=== PATIENT | female | born 1995 | race Caucasian/White ===

== ENCOUNTER 2017-02-21 11:34 | Emergency (ER) | payer OTHER ==
[~2017-02-21] VITALS: Ht 165.1 cm; Wt 64.2 kg
[~2017-02-21 11:34] MED LIST: AMPH20TA2 PO; LEVOTAB2 PO
[2017-02-21 11:38] VITALS: TEMP 36.8; Ht 165.1 cm; Wt 64.2 kg
[2017-02-21] MEDS ORDERED: KETOROLAC TROMETHAMINE 30 MG/ML VIAL IV STA (12:19)
[2017-02-21] MEDS ORDERED: SODIUM CHLORIDE 0.9% 1000ML 1,000 ML IV STA (12:23)
[2017-02-21] MEDS ORDERED: BCPILLS PO (12:45)
[2017-02-21] MEDS ORDERED: DEXT1CAP8 PO (12:49)
[2017-02-21 13:27] LABS: BASO % 0.2 %; BASO ABS # 0.03 K/uL (0-0.2); COMPLETE YES; EOS % 0.4 %; HEMATOCRIT 38.6 % (37-47); IG% 0.4 %; LYMPH % 12.8 %; LYMPH ABS # 1.71 K/uL (1.2-3.4); MEAN CELL VOLUME 90.8 fL (80-100); MEAN CORPUSCULAR HEMOGLOBIN 30.4 pg (25-34); MEAN CORPUSCULAR HGB CONC 33.4 g/dl (32-36); MEAN PLATELET VOLUME 10.5 fL (7.4-10.4); MONO % 15.5 %; NEUT % 70.7 %; PLATELET COUNT 244 K/uL (130-400); RED BLOOD COUNT 4.25 M/uL (4.2-5.4); WHITE BLOOD COUNT 13.35 K/uL (4.8-10.8)
[2017-02-21 13:37] LABS: CALCIUM 9.3 mg/dl (8.5-10.1)
[2017-02-21 13:39] LABS: BUN/CREATININE RATIO 6.3 (10-20); CREATININE 0.88 mg/dl (0.60-1.20); POTASSIUM 3.8 mmol/L (3.5-5.1)
[2017-02-21 14:32] VITALS: BP 97/82; PULSE 93; O2SAT 99
--- NOTE | 2017-02-21 15:31 | EMERGENCY ROOM VISIT NOTE ---
History Report prepared by Jose: Megan Galindo Under the Supervision of: Dr. Maryan Sierra D.O. First contact with patient: 11:58 Chief Complaint: ILLNESS Stated Complaint: ON AND OFF FEVER, SHIVERS, NIGHT SWEATS, HEADACHE History of Present Illness The patient is a 22 year old female who presents to the Emergency Room with complaints of persistent illness starting 3 days ago. She was sent to the ED by her sister over concerns of the flu. She reports body aches, headache, fever, chills, and night sweats. Her head and neck feel stiff and she has pain in the back of her head. She has some abdominal pain. She has been keeping hydrated. She is currently on her period. She has received her flu shot. She denies any other medical problems. Source of History: patient Onset: 3 days ago Position: other (global) Quality: other (illness) Timing: other (persistent) Associated Symptoms: + abdominal pain, + chills, + fevers, + headache Note: Pt reports night sweats, body aches, neck stiffness. Review of Systems See HPI for pertinent positives & negatives. A total of 10 systems reviewed and were otherwise negative. Past Medical & Surgical No reported past medical history Family History Diabetes mellitus Hypertension Social History Smoking Status: Never Smoker Marital Status: single, in relationship Occupation Status: [employer] student Current/Historical Medications Scheduled Amphetamine-Dextroamphetamine 20MG (Adderall 20MG), 20 MG PO Q2D Control Pills ( Control Pills), 1 TAB PO DAILY Lwyxlghgykkjijji-Crltpktfaz-Ki (Vicks Nyquil Cold & Flu), 2 CAP PO DAILY Allergies Coded Allergies: No Known Allergies (Unverified , 02/21/17) Physical Exam Vital Signs Date Time Temp Pulse Resp B/P Pulse Ox O2 Delivery O2 Flow Rate FiO2 02/21/17 14:32 93 18 97/82 99 Room Air 02/21/17 11:38 36.8 106 20 113/78 96 Room Air Physical Exam HEENT: Head - normocephalic and atraumatic Pupils are equal, round, and reactive to light. Extraocular eye muscles are intact, and sclera are anicteric. Ears - TMs normal. Nose - moist nasal mucosa without discharge. Mouth - moist buccal mucosa. Oropharynx is nonerythematous and there is no tonsillar exudate or edema noted. Neck: Supple; no JVD, nuchal rigidity, cervical lymphadenopathy. Heart: Tachycardic rate and regular rhythm. There is a normal S1 and S2 with no murmurs, clicks, or gallops appreciated. Lungs: Clear to auscultation bilaterally with no wheezes, rales, or rhonchi. Abdomen: Soft, nondistended, with good bowel sounds. Mild discomfort of LUQ. There are no palpable pulsatile masses or hepatosplenomegaly. There is no guarding, rigidity, or rebound noted. Extremities: No evidence of cyanosis, clubbing, or edema. There are easily palpable peripheral pulses. Skin: warm and dry with good turgor and no rashes. Medical Decision & Procedures Laboratory Results 02/21/17 12:30 Red Blood Count 4.25, Mean Corpuscular Volume 90.8, Mean Corpuscular Hemoglobin 30.4, Mean Corpuscular Hemoglobin Concent 33.4, Mean Platelet Volume 10.5, Neutrophils (%) (Auto) 70.7, Lymphocytes (%) (Auto) 12.8, Monocytes (%) (Auto) 15.5, Eosinophils (%) (Auto) 0.4, Basophils (%) (Auto) 0.2, Neutrophils # (Auto ) 9.42, Lymphocytes # (Auto) 1.71, Monocytes # (Auto) 2.07, Eosinophils # (Auto ) 0.06, Basophils # (Auto) 0.03 02/21/17 12:30 Test 02/21/17 12:30 02/21/17 12:50 White Blood Count 13.35 K/uL (4.8-10.8) Red Blood Count 4.25 M/uL (4.2-5.4) Hemoglobin 12.9 g/dL (12.0-16.0) Hematocrit 38.6 % (37-47) Mean Corpuscular Volume 90.8 fL (80-100) Mean Corpuscular Hemoglobin 30.4 pg (25-34) Mean Corpuscular Hemoglobin Concent 33.4 g/dl (32-36) Platelet Count 244 K/uL (130-400) Mean Platelet Volume 10.5 fL (7.4-10.4) Neutrophils (%) (Auto) 70.7 % Lymphocytes (%) (Auto) 12.8 % Monocytes (%) (Auto) 15.5 % Eosinophils (%) (Auto) 0.4 % Basophils (%) (Auto) 0.2 % Neutrophils # (Auto) 9.42 K/uL (1.4-6.5) Lymphocytes # (Auto) 1.71 K/uL (1.2-3.4) Monocytes # (Auto) 2.07 K/uL (0.11-0.59) Eosinophils # (Auto) 0.06 K/uL (0-0.5) Basophils # (Auto) 0.03 K/uL (0-0.2) RDW Standard Deviation 44.1 fL (36.4-46.3) RDW Coefficient of Variation 13.1 % (11.5-14.5) Immature Granulocyte % (Auto) 0.4 % Immature Granulocyte # (Auto) 0.06 K/uL (0.00-0.02) Anion Gap 8.0 mmol/L (3-11) Est Creatinine Clear Calc Drug Dose 90.2 ml/min Estimated GFR () 108.1 Estimated GFR (Non- 93.3 BUN/Creatinine Ratio 6.3 (10-20) Calcium Level 9.3 mg/dl (8.5-10.1) Monoscreen NEG (NEG) Influenza Type A Antigen Neg for Influ A (NEG) Influenza Type B Antigen Neg for Influ B (NEG) Laboratory results per my review. Medications Administered Medications (Trade) Dose Ordered Sig/Todd Route Start Time Stop Time Status Last Admin Dose Admin Ketorolac Tromethamine 30 mg 30 mg NOW STAT IV 02/21/17 12:19 02/21/17 12:23 DC 02/21/17 12:47 30 MG Sodium Chloride (Nss 1000ml) 1,000 ml @ 999 mls/hr Q1H1M STAT IV 02/21/17 12:23 02/21/17 13:23 DC 02/21/17 12:46 999 MLS/HR Procedure Medications: Toradol Inj 30 mg IV, NSS 1000 ml @ 999 mls/hr IV. ED Course 1207: The patient was evaluated in room B10. A complete history and physical examination were performed. Nursing notes and previous electronic medical records were reviewed. IV lock was established and labs were drawn as above. 1219: Toradol Inj 30 mg IV. 1223: NSS 1000 ml @ 999 mls/hr IV. A flu swab was obtained. This was negative. 1435: Upon reevaluation, the patient is feeling much better after Toradol and IV fluids. I discussed findings and results with her. She verbalized agreement of the treatment plan. She was discharged home. Medical Decision The patient is a 22 year old female who presents to the ED with flu like symptoms. Differential diagnosis includes influenza, viral illness, sinus infection, mono. Lab results show: influenza negative, mono negative, WBC 13.3, stable H&H, glucose 91, normal renal function. This is a 22-year-old female patient who presents to the emergency with diffuse body aches, headache and sore throat. Patient also was complaints of left upper quadrant abdominal pain. Consider the possibility of mono. [place] testing was negative. She had no significant posterior lymphadenopathy. White blood cell count was only mildly elevated. The patient had significant improvement in her symptoms after receiving IV Toradol fluids. She was given expectant management instructions. Impression Primary Impression: Viral illness Scribe Attestation The scribe's documentation has been prepared under my direction and personally reviewed by me in its entirety. I confirm that the note above accurately reflects all work, treatment, procedures, and medical decision making performed by me. Departure Information Dispostion Home / Self-Care Referrals No Doctor, Assigned (PCP) Forms HOME CARE DOCUMENTATION FORM, IMPORTANT VISIT INFORMATION, WORK / SCHOOL INSTRUCTIONS Patient Instructions ED Viral Syndrome, My [facility] Additional Instructions Rest. Take plenty of clear liquids Take ibuprofen for pain and body aches. Return to the ER for worsening symptoms
== END 2017-02-21 15:04 | disposition home or self-care (01) ==
LOC: C.EDB 11:36
DX: B34.9 Viral infection, unspecified (principal); Z79.899 Other long term (current) drug therapy; Z83.3 Family history of diabetes mellitus; Z82.49 Family history of ischemic heart disease and other diseases of the circulatory system